=== PATIENT | female | born 1965 | race Caucasian/White ===

== ENCOUNTER → 2023-09-26 16:05 | Outpatient (REF) | payer OTHER, SELFPAY | LOC: WDC 16:05 | PROVIDERS: ATTENDING PHYSICIAN Internal Medicine | DX: Z12.31 Encounter for screening mammogram for malignant neoplasm of breast (principal) | CPT/HCPCS: 77063; 77067 ==

== ENCOUNTER → 2023-10-03 08:29 | Outpatient (REF) | payer OTHER, SELFPAY | LOC: HWRAD 08:29 | PROVIDERS: ATTENDING PHYSICIAN Internal Medicine | DX: M85.80 Other specified disorders of bone density and structure, unspecified site (principal) | CPT/HCPCS: 77080 ==

== ENCOUNTER 2024-01-06 10:47 | Emergency (ER) | payer MEDICARE, OTHER, SELFPAY ==
[2024-01-06] VITALS (9 sets, daily range): BP systolic 106–122; BP diastolic 65–81; BMI 31.8
--- NOTE | 2024-01-06 11:27 | ED.GENMED ---
History of Present Illness
General
Chief Complaint: Heart Rate Problem
Time Seen by Provider: 01/06/24 11:10
History of Present Illness
History of Present Illness:
58-year-old female with history of stage IV pancreatic cancer (s/p failed chemotherapy, not on active medication), atrial fibrillation on Eliquis, history of SVT on metoprolol presenting to the emergency department for multiple complaints. Patient
reports that she recently traveled from [place], came home yesterday. 2 nights ago, she started to have throat pain and itchiness in her ears. She also reports generalized fatigue, sweats and chills. This morning she started to have generalized
abdominal pressure with nausea and vomiting. She felt that she will CT which resolved after she vomited. She also reports a mild cough. She denies chest pain or difficulty breathing. She reports decreased urination, feels dehydrated. She
reports compliance with her Eliquis, did not miss any dosages. Denies any changes in her stool, had a bowel movement this morning. Denies known sick contact exposures, however did travel on an airplane. Denies additional acute medical
Past History
Past History
ED Past Medical History: Arrthythmia (SVT, A. fib), Cancer (Pancreatic) and Psychiatric
ED Past Surgical History: Orthopedic and Other
Social History
Tobacco: Former smoker
Alcohol: Occasional
Drug: None
Personal:
Living: with family
Family History
Family History: Other (Family history of coronary disease stroke and cancer)
Phy Exam
Physical Exam
Physical Exam:
General: No acute distress, dry mucous membranes
HEENT: protecting airway, no significant oropharyngeal erythema or swelling
Neck: appears supple
CV: Tachycardic, regular rhythm, no evidence of cyanosis
Resp: No accessory muscle use, no increased work of breathing, lungs clear to auscultation bilaterally
Abd: Soft and non-distended, no tenderness to palpation
Extremities: No deformities, no swelling, no erythema, pulses and sensation intact
Neuro: alert, no focal neurologic deficit
: deferred
Rectal: deferred
Psych: Normal affect
Skin: Intact
Course
Orders/Labs/Results
Orders:
Orders
01/06/24 10:54
EKG [Electrocardiogram (*1)] Urgent
Reason for Study: Chest Pain
EKG- Treatment ONCE
01/06/24 11:24
CR Chest - 2 Views Urgent
Comment:
Reason For Exam: cough
01/06/24 11:25
CT Abd/pelvis W Iv Cont Urgent
Comment:
Reason For Exam: general pain, hx stage IV pancreatic cancer, N/V
0.9% Sodium Chloride 500 ml [Nss] 500 ml IV BOLUS
Ondansetron Injectable [Zofran] 4 mg IV NOW STA
01/06/24 11:27
COVID-19 Antigen Urgent
Source: Nasal Swab
Complete Blood Count/With Diff Urgent
Comprehensive Metabolic Panel Urgent
Lipase Urgent
Troponin I Urgent
Influenza A+B Rapid Molecular Urgent
CARRIE Source: Nasal Swab
Specimen Description:
01/06/24 12:21
Morphine Sulfate 4 mg IV NOW STA
01/06/24 12:30
Urinalysis Reflex To Culture Urgent
Date Specimen was Collected: 01/06/24
Time Specimen was Collected: 12:19
Urine Microscopic Reflex Cult Urgent
Abnormal Lab Results
01/06/24 01/06/24
11:27 12:30
RBC 4.04 L 10^6/uL
(4.20-5.40)
Hgb 11.7 L g/dL
(12.0-16.0)
Hct 36.4 L %
(37.0-47.0)
MCHC 32.1 L g/dL
(33.0-37.0)
RDW 15.1 H %
(11.5-14.5)
Absolute Neuts (auto) 7.6 H 10^3/uL
(1.4-6.5)
Absolute Lymphs (auto) 0.6 L 10^3/uL
(1.2-3.4)
Absolute Monos (auto) 0.9 H 10^3/uL
(0.1-0.6)
Neutrophils % 80.7 H %
(42.2-75.2)
Lymphocytes % 6.5 L %
(20.5-51.1)
Monocytes % 9.9 H %
(1.7-9.3)
Creatinine 0.5 L mg/dL
(0.6-1.0)
Glucose 132 H mg/dl
(70-99)
AST 78 H U/L
(14-36)
ALT 76 H U/L
(0-35)
Alkaline Phosphatase 273 H U/L
(38-126)
Urine Ketones 3+ A
(Negative)
Ur Occult Blood Reflex 3+ A
(Negative)
Urine RBC 7-10 A /HPF
(0-2)
SARS-CoV-2 Antigen Positive A
(Negative)
01/06/24 11:27
01/06/24 11:27
Vital Signs
Initial and Last Documented VS:
Initial Vital Signs
Temp Pulse Resp BP Pulse Ox
97.8 F 121 18 118/81 98
01/06/24 11:01 01/06/24 11:01 01/06/24 11:01 01/06/24 11:01 01/06/24 11:01
Last Documented Vital Signs
Temp Pulse Resp BP Pulse Ox
97.8 F 88 20 106/65 95
01/06/24 11:01 01/06/24 14:30 01/06/24 14:15 01/06/24 14:30 01/06/24 14:30
MDM/Problems Addressed
MDM/Problems Addressed:
58-year-old female with history of stage IV pancreatic cancer (s/p failed chemotherapy, not on active medication), atrial fibrillation on Eliquis, history of SVT on metoprolol presenting to the emergency department for chills, sore throat, cough,
abdominal pain, nausea, vomiting. Vital signs on arrival significant for tachycardia.
On exam, patient in no acute distress, does appear slightly dry with dry mucous membranes. Tachycardia from slight dehydration. EKG obtained, no significant ischemic abnormality or change from prior. No arrhythmia. Low suspicion for ACS, no
present chest pain. Patient reports compliance with her Eliquis. Without present concern for PE. Suspect component of viral syndrome, recent travel on an airplane with chills and URI symptoms. Will send COVID and influenza. Will also obtain
chest x-ray imaging, notes mild cough. No respiratory distress, equal breath sounds bilaterally with lower suspicion for pneumonia. Patient also notes generalized abdominal pain with nausea and vomiting. No focal tenderness to abdomen. However,
given patient's oncologic history, will obtain CT and ensure no acute process. Will start patient on IV fluids. Zofran administered for nausea.
15:00 -patient COVID-positive. Chest x-ray however without significant cardiopulmonary disease. Urine shows ketones, consistent with dehydration. Chemistry panel shows elevated liver enzymes, consistent with known metastasis. CT of the abdomen
shows malignancy with metastasis, without significant change from prior MRI imaging. Patient's vital signs have improved, correction of tachycardia. Patient notes she is feeling better. No hypoxia. Feel that she can appropriately be managed at
home, and patient in agreement. Do not feel is a candidate for Paxlovid, on Eliquis. Advised continued supportive therapy. Strict return precautions were communicated to patient and at bedside, who verbalized understanding.
*EKG
Interpreted by ED Provider?: Yes
EKG Intrepretation Date: 01/06/24
EKG Intrepretation Time: 11:34
Interpretation: normal
Comparison EKG: no changes (05/18/24)
Heart Rate: 108
Rate: tachycardiac
Rhythm: sinus
[place]: left axis deviation
Interval: normal interval
QRS Pattern: left bundle branch block
Ischemia: no ischemia
*Critical Care Note
Total Time (30-74mins, 75-104mins- exclusive of procedures): Not Applicable
ED Attending Note
-
Portions of this chart may have been created with voice recognition software.� Occasional wrong word or��sound alike� substitutions may have occurred due to the inherent limitations of voice recognition software.
Discharge Plan
Departure
Prescriptions:
No Action
famotidine 20 MG tablet
20 mg PO BID Qty: 10 0RF
diphenhydramine HCl [Banophen] 25 MG capsule
25 mg PO Q6H PRN (Reason: swelling/itching) Qty: 30 0RF
cyanocobalamin (vitamin B-12) 100 MCG tablet
1,000 mcg PO DAILY
bupropion HCl 300 MG tablet extended release 24 hr
300 mg PO DAILY
cholecalciferol (vitamin D3) 2,000 UNIT tablet
2,000 unit PO DAILY
metoprolol succinate 25 MG tablet extended release 24 hr
25 mg PO DAILY Qty: 30 5RF
Referrals:
Courtney Romero MD [Family Provider] -
Interventions
Interventions:
*Risk Screen - Suicide Last Done: 01/06/24 11:06
*General Assessment Last Done: 01/06/24 11:06
*Neglect/Abuse Screening Last Done: 01/06/24 11:06
ED- Cardiac Assessment Last Done: 01/06/24 11:20
ED- Pulmonary Assessment Last Done: 01/06/24 11:20
Discharge Date and Time
Print Language: [place]
[2024-01-06] MEDS: NSS 500 IV (11:34)
[2024-01-06] MEDS: ZOFRAN 4 MG IV (11:34)
[2024-01-06 11:41] LABS: % Basophils 0.6 % (0-2); % Eosinophils 1.9 % (0-6); % Immature Granulocytes 0.4 % (0-0.5); % Lymphocytes 6.5 % (20.5-51.1); % Monocytes 9.9 % (1.7-9.3); % Neutrophils 80.7 % (42.2-75.2); Absolute Basophils 0.1 10^3/uL (0-0.2); Absolute Eosinophils 0.2 10^3/uL (0-0.7); Absolute Lymphocytes 0.6 10^3/uL (1.2-3.4); Absolute Monocytes 0.9 10^3/uL (0.1-0.6); Absolute Neutrophils 7.6 10^3/uL (1.4-6.5); Hematocrit 36.4 % (37.0-47.0); Hemoglobin 11.7 g/dL (12.0-16.0); Mean Corp Hgb Conc. 32.1 g/dL (33.0-37.0); Mean Corpuscular Volume 90.1 fL (81.0-99.0); Mean Platelet Volume 9.2 fL (7.4-10.4); Nucleated Red Blood Cells % 0 %; Platelet Count 302 10^3/uL (130-400); Red Blood Cell Count 4.04 10^6/uL (4.20-5.40); Red Cell Dist. Width 15.1 % (11.5-14.5); White Blood Cell Count 9.4 10^3/uL (4.8-10.8)
[2024-01-06 11:50] LABS: COVID-19 Antigen Positive (Negative)
[2024-01-06 11:55] LABS: ALT (SGPT) 76 U/L (0-35); AST (SGOT) 78 U/L (14-36); Albumin 4.3 g/dl (3.5-5.0); Alkaline Phosphatase 273 U/L (38-126); Blood Urea Nitrogen 8 mg/dl (7-17); Calcium 9.6 mg/dl (8.4-10.2); Carbon Dioxide 24 mmol/L (22-30); Chloride 105 mmol/L (98-107); Estimated Creatinine Clearance 99 ml/min; Glucose 132 mg/dl (70-99); Lipase 93 U/L (23-300); Potassium 3.8 mmol/L (3.5-5.1); Sodium 138 mmol/L (135-145); Total Bilirubin 0.6 mg/dl (0.2-1.3); Total Protein 7.1 g/dl (6.3-8.2); eGFR > 60.00
[2024-01-06 12:05] LABS: Troponin I < 0.012 ng/ml
[2024-01-06] MEDS: MORPHINE SULFATE 4 MG IV (12:35)
[2024-01-06 12:59] LABS: Urine Albumin Negative (Neg - Trace); Urine Bilirubin Negative (Negative); Urine Character Clear (Clear); Urine Color Yellow; Urine Glucose Negative (Negative); Urine Ketone 3+ (Negative); Urine Leukocyte Negative (Negative); Urine Nitrite Negative (Negative); Urine Occult Blood 3+ (Negative); Urine Urobilinogen Negative (Neg - 1+)
[2024-01-06 13:16] LABS: Urine White Cell 0-2 /HPF (0-5)
== END 2024-01-06 15:28 | disposition home or self-care (01) ==
LOC: EMR 10:47
PROVIDERS: EMERGENCY PHYSICIAN Student in an Organized Health Care Education/Training Program; FAMILY PHYSICIAN Internal Medicine
DX: U07.1 COVID-19 (principal); I47.10 Supraventricular tachycardia, unspecified; I48.91 Unspecified atrial fibrillation; R74.8 Abnormal levels of other serum enzymes; Z79.01 Long term (current) use of anticoagulants; Z82.3 Family history of stroke; Z82.49 Family history of ischemic heart disease and other diseases of the circulatory system; Z85.07 Personal history of malignant neoplasm of pancreas; Z86.79 Personal history of other diseases of the circulatory system; Z87.891 Personal history of nicotine dependence
CPT/HCPCS: 99284; 96374; 96375; 96361; 71046; 74177; 80053; 81003; 81015; 83690; 84484; 85025; 87502; 87811; 93005; Q9967

== ENCOUNTER 2024-01-12 05:03 | Inpatient (IN) | payer MEDICARE, SELFPAY ==
[2024-01-12] VITALS (15 sets, daily range): BP systolic 108–148; BP diastolic 64–85; PULSE 69–83; BMI 31.4
[2024-01-12] MEDS: NSS 1000 IV ×3 (01:47→17:20)
[2024-01-12] MEDS: MORPHINE SULFATE 4 MG IV (01:52)
[2024-01-12 01:57] LABS: % Basophils 0.5 % (0-2); % Eosinophils 6.2 % (0-6); % Immature Granulocytes 0.3 % (0-0.5); % Lymphocytes 28.2 % (20.5-51.1); % Monocytes 9.8 % (1.7-9.3); Absolute Eosinophils 0.5 10^3/uL (0-0.7); Absolute Lymphocytes 2.5 10^3/uL (1.2-3.4); Absolute Monocytes 0.9 10^3/uL (0.1-0.6); Absolute Neutrophils 4.8 10^3/uL (1.4-6.5); Mean Corp Hgb Conc. 34.2 g/dL (33.0-37.0); Mean Corpuscular Hgb 29.8 pg (27.0-31.0); Mean Corpuscular Volume 87.2 fL (81.0-99.0); Mean Platelet Volume 9.3 fL (7.4-10.4); Nucleated Red Blood Cells % 0 %; Platelet Count 378 10^3/uL (130-400); Red Blood Cell Count 4.36 10^6/uL (4.20-5.40); Red Cell Dist. Width 14.1 % (11.5-14.5); White Blood Cell Count 8.8 10^3/uL (4.8-10.8)
[2024-01-12 02:08] LABS: COVID-19 Antigen Positive (Negative)
--- NOTE | 2024-01-12 02:08 | ED.GENMED ---
History of Present Illness
General
Chief Complaint: Heart Rate Problem
Time Seen by Provider: 01/12/24 01:42
History of Present Illness
History of Present Illness:
58-year-old female with history of stage IV pancreatic cancer (s/p failed chemotherapy, not on active medication), atrial fibrillation on Eliquis, history of SVT on metoprolol presenting to the emergency department for chest pain and concern of SVT.
Patient reports around 11 PM, she felt like her heart was racing. She took an extra dose of her metoprolol, however symptoms did not improve so she called the medics. Medics obtained EKG, consistent with SVT, and 6 mg of adenosine subsequently
administered. Patient recently diagnosed with COVID on 01/05, has been recovering. She reports overall decreased p.o. intake and some dizziness. She is also having some epigastric abdominal pain. She reports that her cough has been controlled,
denies dyspnea. Denies fevers. Reports generalized fatigue and weakness. Reports last episode of SVT was when she was diagnosed with COVID as well. Patient is currently at home by herself. Denies additional acute medical complaints
Past History
Past History
ED Past Medical History: Arrthythmia (SVT, A. fib), Cancer (Pancreatic) and Psychiatric
ED Past Surgical History: Orthopedic and Other
Social History
Tobacco: Former smoker
Alcohol: Occasional
Drug: None
Personal:
Living: with family
Family History
Family History: Other (Family history of coronary disease stroke and cancer)
Phy Exam
Physical Exam
Physical Exam:
General: Pale, dry mucous membranes, anxious
HEENT: protecting airway
Neck: appears supple
CV: Tachycardic
Resp: No accessory muscle use, no increased work of breathing, lungs clear to auscultation bilaterally
Abd: Soft and non-distended, tenderness epigastric abdomen
Extremities: No deformities, no swelling, no erythema, pulses and sensation intact
Neuro: alert, no focal neurologic deficit
: deferred
Rectal: deferred
Psych: Normal affect
Skin: Intact
Course
Orders/Labs/Results
Orders:
Orders
01/12/24 01:36
EKG [Electrocardiogram (*1)] Urgent
Reason for Study: Tachycardia
EKG- Treatment ONCE
01/12/24 01:43
0.9% Sodium Chloride 1000 ml [Nss] 1,000 ml IV BOLUS
Morphine Sulfate 4 mg IV NOW STA
CR Chest Portable - 1 View Urgent
Comment:
Reason For Exam: CP, SOB
Reason Study Needs to be Portable: Unable to Transport
01/12/24 01:46
COVID-19 Antigen Urgent
Source: Nasal Swab
Complete Blood Count/With Diff Urgent
Comprehensive Metabolic Panel Urgent
Lipase Urgent
NT-proBNP Urgent
Troponin I Urgent
Abnormal Lab Results
01/12/24
01:46
Absolute Monos (auto) 0.9 H 10^3/uL
(0.1-0.6)
Monocytes % 9.8 H %
(1.7-9.3)
Eosinophils % 6.2 H %
(0-6)
SARS-CoV-2 Antigen Positive A
(Negative)
01/12/24 01:46
Vital Signs
Initial and Last Documented VS:
Initial Vital Signs
Temp Pulse Resp BP Pulse Ox
97.9 F 111 22 123/70 98
01/12/24 01:34 01/12/24 01:34 01/12/24 01:34 01/12/24 01:34 01/12/24 01:34
Last Documented Vital Signs
Temp Pulse Resp BP Pulse Ox
97.9 F 96 19 108/67 98
01/12/24 01:34 01/12/24 01:54 01/12/24 01:54 01/12/24 01:54 01/12/24 01:54
MDM/Problems Addressed
MDM/Problems Addressed:
58-year-old female with history of stage IV pancreatic cancer (s/p failed chemotherapy, not on active medication), atrial fibrillation on Eliquis, history of SVT on metoprolol presenting for concern of SVT with dizziness, chest pain, nausea,
abdominal pain. Vital signs on arrival significant for tachycardia.
Patient received adenosine prior to arrival, EKG converted from SVT to sinus rhythm. Patient otherwise on arrival is in no acute distress, however does appear dehydrated with dry mucous membranes. Patient seen and evaluated on 01/05, diagnosed with
COVID. Patient in no respiratory distress, lungs clear to auscultation. On recent hospitalization, patient had CT abdominal imaging, showed stable appearance of patient's pancreatic cancer. Do not feel patient requires repeat CT abdominal
imaging. Suspect patient discomfort to the epigastric abdomen is consistent with her known malignancy. Ultimately suspect patient's current symptoms are from dehydration from her viral syndrome. EKG without acute ischemic abnormality or
significant change from prior. Lower suspicion for ACS. Lower suspicion for PE anticoagulated on Eliquis. Will start patient on IV fluids. Morphine administered for pain. Zofran administered for nausea. Will obtain laboratory analysis and
continue to closely monitor.
Patient remains hemodynamically stable, however remains symptomatic. Patient lives at home by herself. Given second visit for similar complaints, feel patient warrants admission for continued IV fluids and cardiac monitoring. Patient agreeable to
plan.
*Critical Care Note
Total Time (30-74mins, 75-104mins- exclusive of procedures): Not Applicable
ED Attending Note
-
Portions of this chart may have been created with voice recognition software.� Occasional wrong word or��sound alike� substitutions may have occurred due to the inherent limitations of voice recognition software.
Discharge Plan
Departure
Prescriptions:
No Action
famotidine 20 MG tablet
20 mg PO BID Qty: 10 0RF
diphenhydramine HCl [Banophen] 25 MG capsule
25 mg PO Q6H PRN (Reason: swelling/itching) Qty: 30 0RF
cyanocobalamin (vitamin B-12) 100 MCG tablet
1,000 mcg PO DAILY
bupropion HCl 300 MG tablet extended release 24 hr
300 mg PO DAILY
cholecalciferol (vitamin D3) 2,000 UNIT tablet
2,000 unit PO DAILY
metoprolol succinate 25 MG tablet extended release 24 hr
25 mg PO DAILY Qty: 30 5RF
Interventions
Interventions:
*Risk Screen - Suicide Last Done: 01/12/24 01:34
*General Assessment Last Done: 01/12/24 01:34
*Neglect/Abuse Screening Last Done: 01/12/24 02:02
ED- Cardiac Assessment Last Done: 01/12/24 02:02
ED- Pulmonary Assessment Last Done: 01/12/24 02:02
Discharge Date and Time
Print Language: CAMEROONIAN
[2024-01-12 02:17] LABS: ALT (SGPT) 72 U/L (0-35); AST (SGOT) 106 U/L (14-36); Albumin 4.3 g/dl (3.5-5.0); Alkaline Phosphatase 341 U/L (38-126); Blood Urea Nitrogen 7 mg/dl (7-17); Calcium 9.8 mg/dl (8.4-10.2); Carbon Dioxide 22 mmol/L (22-30); Chloride 105 mmol/L (98-107); Glucose 170 mg/dl (70-99); Lipase 184 U/L (23-300); Potassium 3.6 mmol/L (3.5-5.1); Sodium 138 mmol/L (135-145); Total Protein 7.2 g/dl (6.3-8.2); eGFR > 60.00
[2024-01-12] MEDS: ZOFRAN 4 MG IV (02:18)
[2024-01-12 02:22] LABS: NT-proBNP 227 pg/ml; Troponin I 0.031 ng/ml
--- NOTE | 2024-01-12 04:16 | HPS.HSE ---
Family Physician
-
Family Physician: Courtney Romero
Chief Complaint
-
lightheadedness and weakness
History of Present Illness
HPI
58F Lives alone HX metastatic pancreatic CA locally invasive gastric body and liver mets, HX SVT seen at ER for evalautionn of dizziness and weakness;
First ER visit on 01/05 for SVT - converted to NSR s/p adenosine
- Noted POS Covid with associated dizziness, nausea and dehydration as of 01/05 Tx with IVF
Today [facility] to ER
- felt lightheaded and dizzy with ambulation concern for falls and afraid to ambulate
- Associated generalized weakness
- currently Home alone while family is travelling
VS: marginally tachycardic , borderline hypotension
labs: Known HX chr abn LFTS due to metastatic liver dz
Medical History
Past Medical History
Past Medical History: Reports Other (Arrthythmia (SVT, A. fib), Cancer (Pancreatic) and Psychiatric)
Past Surgical History: Reports Orthopedic
Social History
Tobacco: Former Smoker
Alcohol: Occasional
Drug: None
Personal:
Living: With Family
Family History
Family History: Not pertinent
Allergies / Home Medications
Allergies reflects when Allergies were last updated in [facility].
Home Medications with original date entered in [facility]
Allergy/Medication List:
Allergies
Allergy/AdvReac Type Severity Reaction Status Date / Time
epinephrine AdvReac Unknown Verified 01/06/24 10:59
Home Medications
apixaban 5 mg tablet (Eliquis) 5 mg PO BID 01/12/24
cholecalciferol (vitamin D3) 50 mcg (2,000 unit) capsule (Vitamin D3) 50 mcg PO DAILY 01/12/24
duloxetine 30 mg capsule,delayed release 30 mg PO DAILY 01/12/24
lansoprazole 30 mg capsule,delayed release 30 mg PO DAILY 01/12/24
pusjns-jzpefccl-vhbqlfl 24,000-76,000-120,000 unit capsule,delayed rel (Creon) 1 cap PO QID 01/12/24
lorazepam 0.5 mg tablet 0.5 mg PO DAILY PRN nausea 01/12/24
methylphenidate HCl 5 mg PO PRN PRN fatigue 01/12/24
metoprolol succinate 50 mg tablet,extended release 24 hr 50 mg PO BID 01/12/24
metoprolol tartrate 25 mg tablet 25 mg PO PRN PRN heart rate 01/12/24
sacubitril 24 mg-valsartan 26 mg tablet (Entresto) 1 tab PO BID 01/12/24
vitamin B complex 1 tab PO DAILY 01/12/24
Review of Systems
-
Constitutional: Reports Fatigue
EENT: Reports No Symptoms
Respiratory: Reports No Symptoms
Cardiac: Reports No Symptoms
Abdomen/GI: Reports No Symptoms
: Reports No Symptoms
Musculoskeletal: Reports No Symptoms
Skin: Reports No Symptoms
Neurological: Reports Weakness
Endocrine: Reports No Symptoms
Hematologic/Lymphatic: Reports No Symptoms
Psych: Reports No Symptoms
Physical Exam
Vital Signs
Vital Signs
Temp Pulse Resp BP Pulse Ox
99.4 F 82 16 121/77 93
01/12/24 03:00 01/12/24 04:00 01/12/24 04:00 01/12/24 04:00 01/12/24 04:00
Physical Exam
General: No Apparent Distress, Comfortable and Conversant; No Respiratory Distress or Pain
HEENT: NormoCephalic and Anicteric
Respiratory: Clear; No Wheezes or Rales
Cardiac: S1/S2 and Regular Rhythm
Breast: Deferred by me
GI: Soft, Non Tender and Non Distended
Rectal: Deferred by Provider
Musculoskeletal: No Edema
Neuro: AO x 3 and No Motor Deficits
Psych: Calm and Intact Judgment/Insight; No Confused
Laboratory Results
-
01/12/24 01:46
01/12/24 01:46
Laboratory Results
Total Bilirubin 1.0 mg/dl (0.2-1.3) 01/12/24 01:46
AST 106 U/L (14-36) H 01/12/24 01:46
ALT 72 U/L (0-35) H 01/12/24 01:46
Alkaline Phosphatase 341 U/L (38-126) H 01/12/24 01:46
Troponin I 0.031 ng/ml 01/12/24 01:46
Lipase 184 U/L (23-300) 01/12/24 01:46
Data Reviewed
-
Diagnostic Radiology: Image Personally Visualized and interpreted
CT Scan: Report Reviewed by me
Medical Tests (Nuc Med, Echo, EKG etc): Report Reviewed by me
Lab Data: Labs Reviewed by me
Old Records: Reviewed
Impression/Plan
-
Reviewed VS: noted afebrile marginal tachycardia
Data
nl CBC
nl BMP
AST 106^
ALT 72^
AKP 341
TPNI 0.031
proBNP 227
POS Covid
01/12/24 CXR : will await final CXR report
01/06/24 CXR: No active pulmonary process.
EKG report
SINUS TACHYCARDIA
LEFT AXIS DEVIATION
NON-SPECIFIC INTRA-VENTRICULAR CONDUCTION DELAY
ABNORMAL ECG
WHEN COMPARED WITH ECG OF 06-JAN-2024 10:58,
NO SIGNIFICANT CHANGE WAS FOUND
01/06/24 CT Abd/pelvis W Iv Cont
- Mass involving the pancreatic head with extension into and presumed invasion of the distal gastric body.
- There are surrounding soft tissue implant/rikki metastases, as well as hepatic metastases.
- Gastric invasion is a new finding, however the other findings were seen on previous MRI from 2020.
ASSESSMENT & PLAN
Acute viral covid illness: Day 7 form first POS test : Remaim Covid POS
Associated with generalized weakness and acute gait dysfunction
POS Postural symptoms
Dehydration
- Ortho VSS
- supportive care with IVF, anti emetics PRN
- fall precaution
- Held Entresto for now
In NSR
HX SVT/ A Fib
- cont metoprolol succinate
Chr abn LFTs due to liver mets
HX metastatic pancreatic CA locally invasive gastric body and liver mets
- last Chemo was on December 12 - stopped due to ADEs from chemo
- OP Onco follow up at [facility]
DVT Px: LMWH
Code: Full
IP TLM
[2024-01-12 06:43] LABS: ALT (SGPT) 65 U/L (0-35); AST (SGOT) 83 U/L (14-36); Albumin 3.9 g/dl (3.5-5.0); Alkaline Phosphatase 264 U/L (38-126); Blood Urea Nitrogen 8 mg/dl (7-17); Calcium 9.3 mg/dl (8.4-10.2); Carbon Dioxide 30 mmol/L (22-30); Chloride 105 mmol/L (98-107); Estimated Creatinine Clearance 99 ml/min; Glucose 147 mg/dl (70-99); Potassium 4.4 mmol/L (3.5-5.1); Sodium 141 mmol/L (135-145); Total Bilirubin 0.5 mg/dl (0.2-1.3); Total Protein 6.6 g/dl (6.3-8.2); eGFR > 60.00
[2024-01-12] MEDS: VITAMIN D3 (cholecalciferol) 50 MCG PO (08:07)
[2024-01-12] MEDS: ZENPEP DELAYED RELEASE CAPSULE 1 CAPSULE PO ×3 (08:07→17:20)
[2024-01-12] MEDS: ELIQUIS 5 MG PO ×2 (08:07→20:36)
[2024-01-12] MEDS: CYMBALTA DELAYED RELEASE 30 MG PO (08:07)
[2024-01-12] MEDS: PROTONIX 40 MG PO (08:07)
[2024-01-12] MEDS: TOPROL XL 50 MG PO ×2 (08:07→20:36)
--- NOTE | 2024-01-12 10:07 | PTCARENOTE ---
pt aaox3. states min pain in upper middle abd. pt describes it as some nausea with some cancer pain. did not want any meds now. nsr seen on monitor. ivf running as ordered.
--- NOTE | 2024-01-12 16:59 | PTCARENOTE ---
Pt brought up to 2120. pt with current stage 4 pancreatic cancer. pt tested positive in our ED for covid on 01/05. pt not receiving any medications to treat COVID per discussion with . pt seen by specialist for cancer treatment at [facility]. pt
ambulatory within the room but does have b/l neuropathy in lower extremities
[2024-01-12] MEDS: MORPHINE SULFATE 2 MG IV (17:21)
[2024-01-13 03:28] VITALS: BP 145/83
[2024-01-13] MEDS: NSS 1000 IV (05:30)
[2024-01-13 05:40] VITALS: BMI 31.5
[2024-01-13 06:52] LABS: Hematocrit 32.5 % (37.0-47.0); Hemoglobin 10.7 g/dL (12.0-16.0); Mean Corp Hgb Conc. 32.9 g/dL (33.0-37.0); Mean Corpuscular Volume 88.1 fL (81.0-99.0); Mean Platelet Volume 9.3 fL (7.4-10.4); Platelet Count 293 10^3/uL (130-400); Red Blood Cell Count 3.69 10^6/uL (4.20-5.40); Red Cell Dist. Width 14.5 % (11.5-14.5); White Blood Cell Count 5.7 10^3/uL (4.8-10.8)
[2024-01-13 07:00] VITALS: BP 161/91
[2024-01-13] MEDS: PROTONIX 40 MG PO (07:17)
[2024-01-13] MEDS: ZENPEP DELAYED RELEASE CAPSULE 1 CAPSULE PO ×3 (07:17→16:17)
--- NOTE | 2024-01-13 07:28 | CON.CAR ---
Addendum entered and electronically signed by Leonard Hardin MD 01/13/24 11:35:
I saw and examined the patient.
The Agricultural Produce Sorter's note was reviewed and I agree with the note.
Comment:
GEN: No distress, awake, Ox3
HEENT: supple, anicteric, mmm
LUNGS: CTA, no wheezes/rales
CV: Reg, S1/S2, 1/6 syst LSB, no gallop
ABD: soft, BS+, NT/ND
EXT: No edema
NEURO: Gross non-focal
SKIN: No rash
Plan:
Has a past medical history of metastatic pancreatic cancer to the lung and liver on current chemotherapy at the [facility], with SVT, atrial fibrillation, rate dependent left bundle branch block, neuropathy, and mild cardiomyopathy.
She presents with dehydration and COVID-pneumonia. She was having episodes of weakness and palpitations and elevated heart rate. She did take an extra metoprolol with minimal improvement. She was given SVT and adenosine via EMS. She then had
episodes of sinus tachycardia with her known bundle branch block. Troponin 0.03.
Her blood pressure is improved. Will continue to hold Entresto for now. Continue Toprol XL 50 mg p.o. twice daily with an extra 25 mg of metoprolol tartrate as needed. We will check an echocardiogram to reevaluate her LVEF.
Clinically if she feels well she is stable for discharge.
Abnormal troponin is likely nonischemic myocardial injury.
Original Note:
Consultation
Consultation Request
Date/Time Consultation Requested: 01/12/2024
Date/Time Consultation Performed: 01/13/2024
Requesting Provider: Dr. Hauser
Performing Provider: Jada Magdaleno PA-C for Dr. Hardin
Reason for Consultation: Palpitations/SVT/tachycardiac
Medical History
-
Chief Complaint: palpitations/SVT
History of Present Illness:
Patient is a 58-year-old female with past medical history of metastatic pancreatic cancer to lung and liver diagnosed in July 2021 on chemotherapy with Folfuri followed at [place], history of SVT, atrial fibrillation on chronic Eliquis,
cardiomyopathy recovered, chronic left bundle branch block, neuropathy. Patient was in [place] the week of 04 January and upon returning noted cough, throat pain, uncomfortable feeling in ears, abdominal discomfort with nausea and vomiting prompting
her to present to emergency department on 01/06/2024. She was felt to be dehydrated and tested positive for COVID. Deemed not suitable candidate for Paxlovid. She was discharged home. Presented back to emergency department 01/12/2024 with ongoing
weakness associated with palpitations and elevated heart rate. Palpitations were acute in onset and she felt very weak. Patient prior to coming to hospital took extra dose of metoprolol without improvement of symptoms. EMS obtained EKG which was
consistent with SVT. She was given 6 mg of IV adenosine. Patient had SVT in the past in setting of COVID. In ED patient was in sinus tachycardia w/ LBBB. Noted to have abnormal LFTs AST/ALT 106/72, troponin 0.031, proBNP 227. Chest x-ray
suggestive of chronic atelectasis versus focal mass lesion/neoplasia. Patient
PMH:
Stage 4 pancreatic cancer with mets to liver, lung diagnosed 07/2021, on chronic chemo with Folfuri since 08/2021
History of nonischemic CM, recovered
Paroxysmal atrial fibrillation
History of SVT
Chronic OAC with eliquis
Chronic LBBB
History of idiopathic angioedema
History of remote ankle surgery
History of multiple breast lumpectomies, all of which have been benign
History basal cell skin cancer
Past Medical History
Past Medical History: Other (in HPI)
Past Surgical History: Orthopedic (Right ORIF in 20's) and Other (right lumpectomy)
Social History
Tobacco: Former Smoker
Alcohol: Occasional
Drug: None
Personal:
Living: With Family
Family History
Family History: CAD, Cancer and Other (CVA)
Allergies / Home Medications
Allergy/AdvReac Type Severity Reaction Status Date / Time
epinephrine AdvReac Unknown Verified 01/06/24 10:59
�Medication �Instructions �Recorded �Confirmed �Type
acetaminophen 500 mg tablet 1,000 mg PO Q6HPRN PRN mild pain 01/12/24 01/12/24 History
(Tylenol Extra Strength)
apixaban 5 mg tablet (Eliquis) 5 mg PO BID Blood Clot 01/12/24 01/12/24 History
Prevention/Tx
cholecalciferol (vitamin D3) 50 50 mcg PO DAILY Supplement 01/12/24 01/12/24 History
mcg (2,000 unit) capsule (Vitamin
D3)
docusate sodium 100 mg capsule 100 mg PO DAILY Constipation 01/12/24 01/12/24 History
(Colace)
duloxetine 30 mg capsule,delayed 30 mg PO DAILY Mental Health 01/12/24 01/12/24 History
release
lansoprazole 30 mg capsule,delayed 30 mg PO DAILY Gastrointestinal 01/12/24 01/12/24 History
release Issue
jrygop-mazkrnfo-iftnsvv 1 cap PO MEALS Gastrointestinal 01/12/24 01/12/24 History
24,000-76,000-120,000 unit Issue
capsule,delayed rel (Creon)
loperamide 2 mg tablet 2 mg PO Q4HPRN PRN diarrhea 01/12/24 01/12/24 History
metoprolol succinate 50 mg 50 mg PO BID Heart Failure 01/12/24 01/12/24 History
tablet,extended release 24 hr
metoprolol tartrate 25 mg tablet 25 mg PO DAILYPRN PRN heart rate 01/12/24 01/12/24 History
ondansetron 8 mg disintegrating 8 mg PO Q8HPRN PRN nausea 01/12/24 01/12/24 History
tablet
sacubitril 24 mg-valsartan 26 mg 1 tab PO BID Heart Failure 01/12/24 01/12/24 History
tablet (Entresto)
vitamin B complex 1 tab PO DAILY Supplement 01/12/24 01/12/24 History
Physical Exam
Vital Signs
Temp Pulse Resp BP Pulse Ox
98.9 F 66 18 161/91 97
01/13/24 07:00 01/13/24 07:00 01/13/24 07:00 01/13/24 07:00 01/13/24 07:00
Lab Results
01/13/24 06:15
01/12/24 06:05
Troponin I 0.031 ng/ml 01/12/24 01:46
Tcq-N-Tppcorywlbh Pept 227 pg/ml 01/12/24 01:46
Impression / Plan
-
PCP:Courtney Romero
Primary Campus Dean: Cardio-oncology at [place], Dr. Kristal Foy
Impression:
Presented 01/11/2024 with palpitations,, weakness, nausea
Dehydration
SVT resolved with IV adenosine
COVID-19+ since 01/05, repeat still + 01/10
runs of paroxysmal atrial tachycardia
Stage 4 pancreatic cancer with mets to liver, lung diagnosed 07/2021, chemo with 5-FU (Folfiri) since 08/2021
Radiation for lung mass
History of nonischemic CM, recovered
Paroxysmal atrial fibrillation
History of SVT
Chronic OAC with eliquis
Chronic LBBB
History of idiopathic angioedema
History of remote ankle surgery
History of multiple breast lumpectomies, all of which have been benign
History basal cell skin cancer
Myocardial perfusion PET stress test 01/2023: coronary calcium score of 0, EF 55% at rest, 57% with stress, and normal myocardial perfusion
Echo 05/23/2023 [place]: EF 50% global longitudinal strain 16%, no significant valvular disease
Echo December 2022 [place]: EF 44%, no significant valvular disease
Zio patch June 2022; 2% A-fib burden
Plan:
-Presented 01/11/2024 with palpitations, tachycardia, weakness and nausea in the setting of COVID-19 and dehydration
-Found to have SVT with HR's 200 bpm, s/p adenosine 6mg by EMS 01/11/2024
-Per personal review of telemetry patient continues to have brief runs of paroxysmal atrial tachycardia secondary diarrhea, and suspected dehydration
-Continue IVF hydration
-Continue Toprol; can given addition short acting Lopressor if recurrent tachycardia
-Hold Entresto given hypotension/dehydration; BP has improved consider restarting
-Troponin negative x1. She had recent myocardial perfusion PET stress test 01/2023 with coronary calcium score of 0, recovered EF and normal myocardial perfusion
-Echo at [place] 05/2023 showed mildly reduced EF. Consider repeating echo at some point
-Encouraged hydration
-continue Eliquis
-Metastatic pancreatic cancer with metastasis to lung liver and gastric body invasion on CT 01/06/24
-Previously treated with 5-FU, last treatment was December 12, was get Folfox 01/15
-Follow-up with outpatient cardio oncology team at [place]
HPI 01/13/2024:
Patient is a 58-year-old female with past medical history of metastatic pancreatic cancer to lung and liver diagnosed in July 2021 on chemotherapy with Folfuri followed at [place], history of SVT, atrial fibrillation on chronic Eliquis,
cardiomyopathy recovered, chronic left bundle branch block, neuropathy. Patient was in [place] the week of 04 January and upon returning noted cough, throat pain, uncomfortable feeling in ears, abdominal discomfort with nausea and vomiting prompting
her to present to emergency department on 01/06/2024. She was felt to be dehydrated and tested positive for COVID. Deemed not suitable candidate for Paxlovid. She was discharged home. Presented back to emergency department 01/12/2024 with ongoing
weakness associated with palpitations and elevated heart rate. Patient prior to coming to hospital took extra dose of metoprolol without improvement of symptoms. EMS obtained EKG which was consistent with SVT. She was given 6 mg of IV adenosine.
Patient had SVT in the past in setting of COVID. In ED patient was in sinus tachycardia w/ LBBB. Noted to have abnormal LFTs AST/ALT 106/72, troponin 0.031, proBNP 227. Chest x-ray suggestive of chronic atelectasis versus focal mass
lesion/neoplasia.
Data Reviewed
-
EKG: Report Reviewed by me, Discussed with Physician and Discussed with Patient
Radiology: Report Reviewed by me, Discussed with Physician and Discussed with Patient
Labs: Labs Reviewed by me, Discussed with Physician and Discussed with Patient
Old Records: Reviewed
[2024-01-13] MEDS: CYMBALTA DELAYED RELEASE 30 MG PO (07:49)
[2024-01-13] MEDS: TOPROL XL 50 MG PO (07:49)
[2024-01-13] MEDS: ELIQUIS 5 MG PO (07:49)
[2024-01-13] MEDS: VITAMIN D3 (cholecalciferol) 50 MCG PO (07:49)
[2024-01-13] MEDS: TYLENOL 650 MG PO (07:50)
[2024-01-13] MEDS: ZOFRAN 4 MG IV (07:53)
[2024-01-13 11:00] VITALS: BP 142/72
[2024-01-13 11:25] VITALS: BP 132/80; BP 139/79; BP 142/72; PULSE 63; PULSE 69; PULSE 76
--- NOTE | 2024-01-13 13:00 | W.PN.HOSP.TC ---
Addendum entered and electronically signed by Rigo Hauser MD 02/01/24 10:46:
SVT n dehydration possibly sec to COVID 19 infection.
Addendum entered and electronically signed by Rigo Hauser MD 01/13/24 16:45:
I saw and evaluated the patient. I reviewed the resident�s note and agree with findings and plan as documented in the resident�s note.
Patient presented with palpitations and associated lightheadedness. She has known history of SVT/atrial fibrillation on it happened in the past. She took a extra dose of metoprolol and she was still feeling symptomatic so came to the hospital.
Emesis in the hospital she has no tachyarrhythmias. She does not have any further palpitations. Seen by cardiology. No changes to her cardiac regimen. Advised to continue with the beta-lio and extra beta-lio as needed for breakthrough
palpitations. She follows with cardiology at [place].
Along with the symptoms she is lately started noticed a bandlike discomfort upper abdomen. It is across the abdomen. She does feel nauseous. Clinically soft belly with some epigastric discomfort. CT of the abdomen pelvis last week 01/05 showed a
pancreatic head tumor causing some compression on the distal stomach. This findings were explained to the patient. Apparently there is was noted in the prior imaging in December at [facility]. She was advised to try symptomatic medication nausea and use
pain medication. Advised to keep them diet softer ,no raw vegetables or salads. Currently no obstructive symptoms. No vomiting. Advised to follow-up with primary oncologist.
She did tolerated diet so far.
DC home.
Original Note:
Documented by User: Bishop Teran MD, Resident 01/13/24 13:25
Today's Communication/Plan
-
Patient continues to receive intravenous fluids for dehydration. We will continue to check CBC and CMP during fluid resuscitation. Cardiology to follow.
Assessment / Plan
Assessment / Plan
- Lightheadedness and weakness: Improving
Patient is COVID-positive on admission
Borderline hypotension possibly a factor of dehydration.
Patient is dehydrated due to ongoing nausea with associated dizziness
- Acute viral COVID illness: Stable
Monitor intake and output.
Contact precautions
- Postural Instability: Improving
Unsteady while walking. Acute gait dysfunction.
Possibly due to hypovolemia.
Patient was able to ambulate a small amount in her room on 01/12.
History of supraventricular tachycardia/atrial fibrillation: Stable
Continuing metoprolol
Patient was given adenosine by EMS, she then had episodes of sinus tachycardia with her known bundle branch block.
Troponin was 0.03 -as per cardiology, abnormal troponin was likely nonischemic myocardial injury
Holding Entresto
Chronically abnormal LFTs due to liver metastasis: Monitoring
History of metastatic pancreatic cancer with locally invasive gastric body and liver metastasis
Last chemo was on December 12
Oncology continues to follow patient. Patient is being treated at [facility]
Anticipated Discharge: 24 - 48 hours
Subjective/Interval History
-
Date of Service: January 13, 2024
Met with patient at the bedside. Patient is calm and pleasant during discussion. She states that she is feeling better but continues to feel weak. She shared her personal accounts and progress through stage IV pancreatic cancer. Patient states
that she is able to breathe normally and continues to wear her mask while she recovers.
Objective Data
-
Labs:
Laboratory Results
01/13/24
06:15
WBC 5.7
Hgb 10.7 L
Hct 32.5 L
Plt Count 293 D
Vital Signs:
Vital Signs
Temp Pulse Resp BP Pulse Ox
98.4 F 63 16 142/72 98
01/13/24 11:00 01/13/24 11:00 01/13/24 11:00 01/13/24 11:00 01/13/24 11:00
I&O
01/12/24 01/13/24 01/14/24
06:59 06:59 06:59
Intake Total 1000 / 1000 1200 / 1200
Balance 1000 / 1000 1200 / 1200
Review of Systems
-
History Source: Patient
Constitutional: Reports Fatigue
EENT: Reports No Symptoms Reported
Cardiac: Reports No Symptoms
Breast: Reports No Symptoms
Genitourinary: Reports No Symptoms
Musculoskeletal: Reports No Symptoms
Skin: Reports No Symptoms
Neuro: Reports No Symptoms
Endocrine: Reports No Symptoms
Hematologic / Lymphatic: Reports No Symptoms
Allergy / Immunology: Reports No Symptoms
Physical Exam
-
General: Well Developed and Well Nourished
HEENT: Normocephalic, Atraumatic and Moist Mucous Membranes
Respiratory: Clear to Auscultation
Cardiac: Regular Rhythm and S1/S2
Breast: Deferred by me
GI: Soft, Nontender, Nondistended and Normal Bowel Sounds
Rectal: Deferred by Provider
Genito-urinary: Deferred by me
Skin: Warm and Dry
Neuro: Nonfocal/Grossly Intact
Psych: Calm

Documented by User: Rigo Hauser MD 01/13/24 16:42
Assessment / Plan
Assessment / Plan
- Lightheadedness and weakness: Improving
Patient is COVID-positive recently
Borderline hypotension possibly a factor of dehydration.
Patient is dehydrated due to ongoing nausea with associated dizziness
- Acute viral COVID illness: Stable
Monitor intake and output.
Contact precautions
- Postural Instability: Improving
Unsteady while walking. Acute gait dysfunction.
Possibly due to hypovolemia.
Patient was able to ambulate a small amount in her room on 01/12.
History of supraventricular tachycardia/atrial fibrillation: Stable
Continuing metoprolol
Patient was given adenosine by EMS, she then had episodes of sinus tachycardia with her known bundle branch block.
Troponin was 0.03 -as per cardiology, abnormal troponin was likely nonischemic myocardial injury
Holding Entresto
Chronically abnormal LFTs due to liver metastasis: Monitoring
History of metastatic pancreatic cancer with locally invasive gastric body and liver metastasis
Last chemo was on December 12
Oncology continues to follow patient. Patient is being treated at [facility]
--- NOTE | 2024-01-13 14:28 | CM ---
Initial Assessment completed via phone with patient
Pharmacy verified: [facility], [address]
Patient reported that she and her spouse live in a multilevel home; 2 steps to enter; 10-12 steps between floors; powder room 1st floor; 2nd floor bathroom has tub w/shower
PLOF: patient reported that she is independent with ambulation, stairs, and ADLs; retired; drives; goes to outpatient PT
DME: none
SNF/Home Health utilization history: no SNF; home infusion services as needed from [facility]; if home care needed, preference is [facility]
Transportation: will provide ride home
Plan: discharge to home when medically stable; will monitor for DC needs
[2024-01-13 15:00] VITALS: BP 136/87
--- NOTE | 2024-01-13 16:23 | W.DCSUMMARY ---
Discharge Summary
Discharge Data
Date of Admission: 01/12/24
Date of Discharge: 01/13/24
-
Pending Results: No
Hospital Course
Patient is a 58-year-old female with a history of stage IV pancreatic cancer (S/p failed chemotherapy, not on active medication), atrial fibrillation on Eliquis, history of SVT on metoprolol who presented to the emergency department for chest pain
and concern for SVT. Patient reported that around 11 PM that evening she felt like her heart was racing. She took an extra dose of her metoprolol, however symptoms did not improve so she called the medics. Medics obtained an EKG, consistent with
SVT, and 6 mg of adenosine was subsequently administered. The patient was recently diagnosed with COVID on 01/05, and has been recovering slowly. She reports overall decreased oral intake and some dizziness. She also was having some epigastric
abdominal pain. She reported that her cough had been controlled, and denied dyspnea. She also reported that the last episode of SVT was when she was diagnosed with COVID as well. Patient was admitted to [facility] for episode of paroxysmal
SVT/A-fib + lightheadedness and weakness secondary to her malignancy.
During her hospital stay the patient was noted to be dehydrated with hypovolemia. Supportive care with intravenous fluids and antiemetics were given. Fall precautions were in place. Her Entresto was held. A cardiology consult was called to
follow this patient. Cardiology agreed with our assessment and believe that the patient's blood pressure had improved sufficiently during her hospital stay. They recommended that that metoprolol XL 50 mg p.o. twice daily be continued with an extra
25 mg of metoprolol tartrate as needed for breakthrough palpitations. They also wanted to check echocardiogram to reevaluate her left ventricular ejection fraction. She has been advised to continue to follow with cardiology at [facility]. CT
of the abdomen pelvis last week on 01/05 showed a pancreatic head tumor causing some compression of the distal stomach. This findings were explained to the patient. Apparently this was noted in the prior imaging in December at [facility]. She has
been advised to keep her diet softer, no raw vegetables or salads. She is currently tolerating her diet well. Patient was also advised to continue to follow with her primary oncologist. Patient felt comfortable and ready to be discharged.
Patient has reached maximal benefit from this admission and is appropriate for discharge at the present time. Patient has been advised to continue to follow with her outpatient primary care provider, cafeteria cook, and oncologist.
Discharge Plan
-
Patient Disposition: Home (Routine Discharge)
Discharge Diagnosis/Procedures: episode of paroxysmal SVT/A-fib .Nausea secondary to her malignancy
Diet: Regular
Additional Diets: keep food soft and moist
Activity: As tolerated
Driving Restrictions: As prior to admission
Referrals:
Courtney Romero MD [Family Provider] - in less than 1 week
Prescriptions:
New
tramadol 50 mg Tablet
50 mg PO Q6HPRN PRN (Reason: moderate pain) Qty: 12 0RF
acetaminophen [Tylenol Extra Strength] 500 mg tablet
500 mg PO QID PRN (Reason: fever or pain) Qty: 1 0RF
Continued
metoprolol succinate 50 mg Tablet Extended Release 24 Hr
50 mg PO BID
lansoprazole 30 mg Capsule,Delayed Release(Dr/Ec)
30 mg PO DAILY
vitamin B complex Tablet
1 tab PO DAILY
metoprolol tartrate 25 mg Tablet
25 mg PO DAILYPRN PRN (Reason: heart rate)
duloxetine 30 mg Capsule,Delayed Release(Dr/Ec)
30 mg PO DAILY
cholecalciferol (vitamin D3) [Vitamin D3] 50 mcg (2,000 unit) Capsule
50 mcg PO DAILY
Creon 24,000-76,000 -120,000 unit Capsule,Delayed Release(Dr/Ec)
1 cap PO MEALS
Eliquis 5 mg Tablet
5 mg PO BID
Entresto 24-26 mg Tablet
1 tab PO BID
loperamide 2 mg Tablet
2 mg PO Q4HPRN PRN (Reason: diarrhea)
ondansetron 8 mg Tablet,Disintegrating
8 mg PO Q8HPRN PRN (Reason: nausea)
docusate sodium [Colace] 100 mg Capsule
100 mg PO DAILY
Discontinued
acetaminophen [Tylenol Extra Strength] 500 mg Tablet
1,000 mg PO Q6HPRN PRN (Reason: mild pain)
Discharge Orders:
Discharge Patient (As Directed); Ordered 01/13/24
Ordered By: Rigo Hauser
Discharge Date and Time
Print Language: YAKUT
--- NOTE | 2024-01-13 16:40 | W.DS.TRANS ---
DC Summary - [employer]
-
Discharge Instructions:
Discharge Diagnosis/Procedures episode of paroxysmal SVT/A-fib .Nausea
secondary to her malignancy
Diet Regular
Additional Diets keep food soft and moist
Activity As tolerated
Driving Restrictions As prior to admission
Instructions:
Stand-Alone Forms:
Changes to Home Medications: No
Discharge Medications:
DC Medications w/original date entered in LMN-1
apixaban 5 mg tablet (Eliquis) 5 mg PO BID Blood Clot Prevention/Tx 01/12/24
cholecalciferol (vitamin D3) 50 mcg (2,000 unit) capsule (Vitamin D3) 50 mcg PO DAILY Supplement 01/12/24
docusate sodium 100 mg capsule (Colace) 100 mg PO DAILY Constipation 01/12/24
duloxetine 30 mg capsule,delayed release 30 mg PO DAILY Mental Health 01/12/24
lansoprazole 30 mg capsule,delayed release 30 mg PO DAILY Gastrointestinal Issue 01/12/24
birmsw-vomoawty-lesyunf 24,000-76,000-120,000 unit capsule,delayed rel (Creon) 1 cap PO MEALS Gastrointestinal Issue 01/12/24
loperamide 2 mg tablet 2 mg PO Q4HPRN PRN diarrhea 01/12/24
metoprolol succinate 50 mg tablet,extended release 24 hr 50 mg PO BID Heart Failure 01/12/24
metoprolol tartrate 25 mg tablet 25 mg PO DAILYPRN PRN heart rate 01/12/24
ondansetron 8 mg disintegrating tablet 8 mg PO Q8HPRN PRN nausea 01/12/24
sacubitril 24 mg-valsartan 26 mg tablet (Entresto) 1 tab PO BID Heart Failure 01/12/24
vitamin B complex 1 tab PO DAILY Supplement 01/12/24
acetaminophen 500 mg tablet (Tylenol Extra Strength) 500 mg PO QID PRN fever or pain #1 tab 01/13/24
tramadol 50 mg tablet 50 mg PO Q6HPRN PRN moderate pain #12 tabs 01/13/24
Home Medication Changes
New medication - tramadol
Pending Results: No
--- NOTE | 2024-01-17 11:59 | PN.CDI ---
CDI
- -
CDI:
Physician Documentation Request
Admit Date: 01/12/24 05:03
Dear Doctor Parul
Please review the following and provide your response in the progress notes.
Clinical Indicators:
The patient presents with dehydration and tachycardia in the settings of COVID.
Additional clinical indicators:
H&P acute viral covid illness associated with generalized weakness and acute gait dysfunction. dehydration
Cardio consult: presented with palpitations, tachycardia, weakness and nausea in the settings of COVID
DS: patient was admitted for episode of paroxysmal SVT?A-fib-+lightheadedness and weakness secondary to malignancy
the patient was noted to be dehydrated with hypovolemia.
Discharge DX: episode of paroxymal SVT?A-fib. Nausea secondary to her malignency
Please clarify the relationship between these conditions:
Yes, ___SVT and dehydration is related to/associated with/due to __COVID_.
No, ___ SVT and dehydration is not related to/associated with/due to _COVID
Other specified cause of dehydration and SVT
Unable to determine
Use of terms such as suspected, likely, concern for, or probable (associated with a specific diagnosis that is being evaluated, monitored, or treated as if it exists) are acceptable and can be coded in the inpatient setting, when documented at the
time of discharge.
Thank you,
Yun Farmer
[facility] Inpatient
Please use your independent medical judgment in providing your response.
== END 2024-01-13 18:08 | disposition home or self-care (01) | DRG 178 ==
LOC: 2 NORTH 05:03
PROVIDERS: ADMITTING PHYSICIAN Internal Medicine; ATTENDING PHYSICIAN Internal Medicine; EMERGENCY PHYSICIAN Student in an Organized Health Care Education/Training Program; FAMILY PHYSICIAN Internal Medicine; OTHER PHYSICIAN Internal Medicine Cardiovascular Disease
DX: U07.1 COVID-19 (principal); C25.0 Malignant neoplasm of head of pancreas; I47.19 Other supraventricular tachycardia; C78.02 Secondary malignant neoplasm of left lung; C78.7 Secondary malignant neoplasm of liver and intrahepatic bile duct; I5A Non-ischemic myocardial injury (non-traumatic); I48.0 Paroxysmal atrial fibrillation; I44.7 Left bundle-branch block, unspecified; G62.9 Polyneuropathy, unspecified; E86.0 Dehydration; E86.1 Hypovolemia; R26.89 Other abnormalities of gait and mobility; I95.9 Hypotension, unspecified; Z79.01 Long term (current) use of anticoagulants; Z82.49 Family history of ischemic heart disease and other diseases of the circulatory system; Z87.891 Personal history of nicotine dependence; Z92.21 Personal history of antineoplastic chemotherapy
CPT/HCPCS: 71045; 80053; 83690; 83880; 84484; 85025; 85027; 87811; 93005; 93306; 96361; 96374; 96375; 99285